=== PATIENT | male | born 1985 | race Caucasian/White ===

== ENCOUNTER 2023-07-12 10:32 | Inpatient (IN) | payer OTHER ==
[2023-07-12 10:43] VITALS: BMI 25.0
[2023-07-12] MEDS ORDERED: METOCLOPRAMIDE HCL 10 MG TABLET (FP) PO ONE (12:27)
[2023-07-12] MEDS ORDERED: metroNIDAZOLE 250 MG TABLET ONE (12:27)
[2023-07-12] MEDS: METOCLOPRAMIDE HCL 10 MG TABLET (FP) PO ONE (12:28)
[2023-07-12] MEDS: metroNIDAZOLE 250 MG TABLET PO ONE ×2 (12:28→19:48)
[2023-07-12] MEDS: BISACODYL 5 MG TABLET.DR (FP) PO ONE (12:58)
[2023-07-12] MEDS: CIPROFLOXACIN 500 MG TABLET (RESTRICTED TO ID) PO ONE ×2 (12:58→19:48)
[2023-07-12] MEDS ORDERED: ONDANSETRON 4 MG TABLET PO ONE (16:16)
[2023-07-12] MEDS ORDERED: KETOROLAC TROMETHAMINE 30 MG/1 ML VIAL ONE (16:16)
[2023-07-12] MEDS: KETOROLAC TROMETHAMINE 30 MG/1 ML VIAL IM ONE (16:22)
[2023-07-12] MEDS: ONDANSETRON 8 MG TABLET (FP) PO ONE (16:22)
[2023-07-12] MEDS ORDERED: morphine SULFATE 4 MG/ML VIAL ONE (17:59)
[2023-07-12 18:03] LABS: BASO % 0.2 % (0-2.0); HEMATOCRIT 41.9 % (35.4-49); HEMOGLOBIN 14.3 GM/dL (11.7-16.9); LYMPH % 9.4 % (8-40); MCH 30.5 pg (25.7-33.7); MCHC 34.2 g/dl (32.0-35.9); MEAN CELL VOLUME 89.1 fl (80-96); MEAN PLT VOLUME 6.9 fl (7.5-11.1); MONO % 7.7 % (3.8-10.2); NEUT % 82.7 % (42.8-82.8); PLATELET COUNT 356 10^3/uL (134-434); RDW 14.4 % (11.9-15.9); WHITE BLOOD COUNT 11.1 K/mm3 (4.0-10.0)
[2023-07-12] MEDS: morphine CARPU-JECT 4 MG/1 ML DISP.SYRIN IVPUSH ONE (18:08)
[2023-07-12 18:23] LABS: CALCIUM 9.5 mg/dL (8.5-10.1)
[2023-07-12 18:24] LABS: ALBUMIN 4.1 g/dl (3.4-5.0)
[2023-07-12 18:27] LABS: CREATININE 0.8 mg/dL (0.55-1.3)
[2023-07-12 18:28] LABS: BILIRUBIN,TOTAL 0.8 mg/dL (0.2-1); TOT PROT 7.6 g/dl (6.4-8.2)
[2023-07-13] MEDS: morphine CARPU-JECT 2 MG/1 ML DISP.SYRIN IVPUSH ONE (01:20)
[2023-07-13] MEDS: SODIUM CHLORIDE 1,000 ML IV SCH (01:56)
[2023-07-13] MEDS ORDERED: ONDANSETRON 4 MG/2 ML VIAL IVPUSH PRN (02:34)
[2023-07-13 08:29] LABS: BASO % 0.2 % (0-2.0); EOS % 0.3 % (0-4.5); HEMATOCRIT 38.3 % (35.4-49); LYMPH % 15.3 % (8-40); MCH 30.4 pg (25.7-33.7); MCHC 33.9 g/dl (32.0-35.9); MEAN CELL VOLUME 89.8 fl (80-96); MEAN PLT VOLUME 7.1 fl (7.5-11.1); MONO % 9.4 % (3.8-10.2); NEUT % 74.8 % (42.8-82.8); PLATELET COUNT 333 10^3/uL (134-434); RBC 4.27 M/mm3 (4.00-5.60); RDW 14.5 % (11.9-15.9); WHITE BLOOD COUNT 11.1 K/mm3 (4.0-10.0)
[2023-07-13 08:56] LABS: POTASSIUM 3.8 mmol/L (3.5-5.1)
[2023-07-13 09:17] LABS: ALBUMIN 3.4 g/dl (3.4-5.0); MAGNESIUM 2.5 mg/dL (1.8-2.4)
[2023-07-13 09:19] LABS: CREATININE 0.7 mg/dL (0.55-1.3); PHOSPHOROUS 3.5 mg/dL (2.5-4.9)
[2023-07-13 09:20] LABS: TOT PROT 6.7 g/dl (6.4-8.2)
[2023-07-13] MEDS: ACETAMINOPHEN 1000 MG/100 ML BAG IVPB PRN (09:39)
[2023-07-13] MEDS: DEXTROSE 5%-LACTATED RINGERS 1,000 ML IV SCH (18:27)
[2023-07-14 08:20] LABS: HEMATOCRIT 36.9 % (35.4-49); HEMOGLOBIN 12.5 GM/dL (11.7-16.9); MCH 30.6 pg (25.7-33.7); MCHC 33.8 g/dl (32.0-35.9); MEAN CELL VOLUME 90.3 fl (80-96); PLATELET COUNT 317 10^3/uL (134-434); RBC 4.09 M/mm3 (4.00-5.60); RDW 13.8 % (11.9-15.9); WHITE BLOOD COUNT 6.8 K/mm3 (4.0-10.0)
[2023-07-14 08:26] LABS: POTASSIUM 3.8 mmol/L (3.5-5.1)
[2023-07-14 08:30] LABS: BLOOD UREA NITROGEN 12.8 mg/dL (7-18); CALCIUM 8.4 mg/dL (8.5-10.1)
[2023-07-14 08:31] LABS: ALBUMIN 3.1 g/dl (3.4-5.0)
[2023-07-14 08:34] LABS: CREATININE 0.7 mg/dL (0.55-1.3)
[2023-07-14 08:35] LABS: BILIRUBIN,TOTAL 0.9 mg/dL (0.2-1)
[2023-07-15 08:54] LABS: HEMATOCRIT 39.1 % (35.4-49); HEMOGLOBIN 13.5 GM/dL (11.7-16.9); MCHC 34.4 g/dl (32.0-35.9); MEAN CELL VOLUME 90.2 fl (80-96); MEAN PLT VOLUME 7.2 fl (7.5-11.1); PLATELET COUNT 339 10^3/uL (134-434); RBC 4.33 M/mm3 (4.00-5.60); RDW 14.2 % (11.9-15.9); WHITE BLOOD COUNT 9.6 K/mm3 (4.0-10.0)
[2023-07-15 09:25] LABS: ALBUMIN 3.4 g/dl (3.4-5.0); CALCIUM 9.2 mg/dL (8.5-10.1)
[2023-07-15 09:26] LABS: BLOOD UREA NITROGEN 7.5 mg/dL (7-18)
[2023-07-15 09:29] LABS: CREATININE 0.6 mg/dL (0.55-1.3)
[2023-07-15 09:30] LABS: BILIRUBIN,TOTAL 0.8 mg/dL (0.2-1); TOT PROT 6.5 g/dl (6.4-8.2)
[2023-07-17 01:44] VITALS: RESP 18
[2023-07-17 10:21] LABS: POTASSIUM 3.6 mmol/L (3.5-5.1)
[2023-07-17 10:25] LABS: BLOOD UREA NITROGEN 11.6 mg/dL (7-18); CALCIUM 9.3 mg/dL (8.5-10.1)
[2023-07-17 10:26] LABS: ALBUMIN 3.7 g/dl (3.4-5.0)
[2023-07-17 10:29] LABS: CREATININE 0.9 mg/dL (0.55-1.3)
[2023-07-17 10:30] LABS: BILIRUBIN,TOTAL 0.6 mg/dL (0.2-1); TOT PROT 6.9 g/dl (6.4-8.2)
[2023-07-17 14:37] VITALS: BP 129/71; PULSE 79; TEMP 98.1
== END 2023-07-17 15:48 | disposition home or self-care (01) | DRG 247 ==
LOC: JER 10:32 → JERBED 07-13 00:55 → OBSVTOIN 07-13 02:29 → J5S 07-13 02:58
PROVIDERS: ADMIT Internal Medicine
DX: K56.609 Unspecified intestinal obstruction, unspecified as to partial versus complete obstruction (principal); K52.9 Noninfective gastroenteritis and colitis, unspecified; K59.00 Constipation, unspecified
CPT/HCPCS: 36415; 74018-TC-FY; 74019-TC-FY; 74177-TC; 80053; 81003; 83605; 83735; 84100; 85025; 85027; 85610; 85730; 86850; 86900; 86901; 87086; 93005; 93010; 99285-25; G0378; J0131; Q9967

== ENCOUNTER 2023-08-10 19:38 | Emergency (ER) | payer OTHER ==
[2023-08-10 19:47] VITALS: BP 109/71; PULSE 91; RESP 26; TEMP 97.5; BMI 27.6
[2023-08-10] MEDS ORDERED: ONDANSETRON 4 MG/2 ML VIAL ONE (21:27)
[2023-08-10] MEDS ORDERED: FAMOTIDINE 20 MG/50 ML IVPB 20 MG/50 ML MG IVPB ONE (21:27)
[2023-08-10] MEDS: LACTATED RINGERS SOLUTION 1000 ML INFUS.BAG IV ONE (21:44)
[2023-08-10] MEDS: ONDANSETRON 4 MG/2 ML VIAL IVPUSH ONE (21:44)
[2023-08-10] MEDS: FAMOTIDINE 20 MG/50 ML IVPB 20 MG/50 ML MG IVPB ONE (21:44)
[2023-08-10 22:02] LABS: BASO % 0.1 % (0-2.0); EOS % 0.2 % (0-4.5); HEMATOCRIT 47.3 % (35.4-49); HEMOGLOBIN 15.7 GM/dL (11.7-16.9); LYMPH % 5.4 % (8-40); MCH 30.1 pg (25.7-33.7); MCHC 33.3 g/dl (32.0-35.9); MEAN CELL VOLUME 90.7 fl (80-96); MEAN PLT VOLUME 7.1 fl (7.5-11.1); MONO % 7.8 % (3.8-10.2); NEUT % 86.5 % (42.8-82.8); PLATELET COUNT 319 10^3/uL (134-434); RBC 5.22 M/mm3 (4.00-5.60); RDW 14.1 % (11.9-15.9)
[2023-08-10 22:03] LABS: INR 1.1 (0.83-1.09); PROTHROMBIN TIME (PATIENT) 12.6 SEC (9.7-13.0)
[2023-08-10 22:06] LABS: ACTIVATED PTT 34.2 SECONDS (25.2-36.5)
[2023-08-10 22:21] LABS: POTASSIUM 3.6 mmol/L (3.5-5.1)
[2023-08-10] MEDS ORDERED: ACETAMINOPHEN INJECTION 100 ML IVPB ONE (22:21)
[2023-08-10 22:24] LABS: CALCIUM 10.4 mg/dL (8.5-10.1)
[2023-08-10 22:25] LABS: ALBUMIN 5.1 g/dl (3.4-5.0); BLOOD UREA NITROGEN 31.8 mg/dL (7-18); MAGNESIUM 2.3 mg/dL (1.8-2.4)
[2023-08-10] MEDS: ACETAMINOPHEN 1000 MG/100 ML BAG IVPB ONE (22:25)
[2023-08-10 22:30] LABS: BILIRUBIN,TOTAL 0.8 mg/dL (0.2-1); TOT PROT 8.8 g/dl (6.4-8.2)
[2023-08-10 23:33] LABS: BASO % 0.2 % (0-2.0); EOS % 0.3 % (0-4.5); HEMATOCRIT 40.5 % (35.4-49); HEMOGLOBIN 13.5 GM/dL (11.7-16.9); LYMPH % 3.9 % (8-40); MCH 30.3 pg (25.7-33.7); MCHC 33.4 g/dl (32.0-35.9); MEAN CELL VOLUME 90.7 fl (80-96); MEAN PLT VOLUME 7.1 fl (7.5-11.1); MONO % 5.4 % (3.8-10.2); NEUT % 90.2 % (42.8-82.8); PLATELET COUNT 284 10^3/uL (134-434); RBC 4.47 M/mm3 (4.00-5.60); RDW 13.8 % (11.9-15.9); WHITE BLOOD COUNT 14.7 K/mm3 (4.0-10.0)
== END 2023-08-11 00:10 | disposition home or self-care (01) ==
LOC: JER 19:38
PROC: 3E033GC Introduction of Other Therapeutic Substance into Peripheral Vein, Percutaneous Approach (ICD-10-PCS; principal; 2023-08-10)
PROC: 3E033NZ Introduction of Analgesics, Hypnotics, Sedatives into Peripheral Vein, Percutaneous Approach (ICD-10-PCS; 2023-08-10)
PROC: 3E033GC Introduction of Other Therapeutic Substance into Peripheral Vein, Percutaneous Approach (ICD-10-PCS; 2023-08-10)
DX: R11.2 Nausea with vomiting, unspecified (principal); R19.7 Diarrhea, unspecified; R53.1 Weakness; R10.11 Right upper quadrant pain; R10.13 Epigastric pain; R68.83 Chills (without fever)
CPT/HCPCS: 36415; 76705-TC; 80053; 83690; 83735; 85025; 85610; 85730; 86850; 86900; 86901; 99284-25; J0131